=== PATIENT | male | born 1975 | race Two or more races ===

== ENCOUNTER 2020-02-20 04:51 | Emergency (ER) | payer OTHER, MEDICAID ==
[2020-02-20 04:57] VITALS: Ht 180.3 cm
[2020-02-20] MEDS ORDERED: CARVEDILOL ER40 MG PO (06:01)
[2020-02-20] MEDS ORDERED: ADALAT CC60 MG PO (06:02)
[2020-02-20] MEDS ORDERED: CALCIUM ACETAT667 M2 PO (06:02)
[2020-02-20] MEDS ORDERED: RENVELA800 M1 PO (06:04)
[2020-02-20] MEDS ORDERED: COZAAR100 MG PO (06:04)
[2020-02-20 06:05] LABS: BASOPHIL % 0.3 % (0-2); PLATELET COUNT 144 x10^3mcL (130-400)
[2020-02-20] MEDS ORDERED: ATORVASTATIN CA80 M1 PO (06:05)
[2020-02-20] MEDS ORDERED: VITAMIN D50000 I4 PO (06:05)
[2020-02-20 06:06] LABS: RED CELL DISTRIBUTION WIDTH 17.7 % (11.5-14.5)
[2020-02-20] MEDS ORDERED: MEN'S ROGAINE5% PO (06:08)
[2020-02-20] MEDS ORDERED: BUMETANIDE0.5 MG PO (06:08)
[2020-02-20 06:16] LABS: ALBUMIN 4.1 g/dL (3.4-5.0); BILIRUBIN TOTAL 0.6 mg/dL (0.20-1.00); CALCIUM 8.9 mg/dL (8.5-10.1); POTASSIUM SERUM 4.3 mmol/L (3.5-5.1); TOTAL PROTEIN, SERUM 7.6 g/dL (6.4-8.2)
[2020-02-20 07:31] VITALS: BP 136/69
== END 2020-02-20 07:31 | disposition home or self-care (01) ==
LOC: ED 04:51
PROVIDERS: Student in an Organized Health Care Education/Training Program
DX: R07.89 Other chest pain (principal); E11.22 Type 2 diabetes mellitus with diabetic chronic kidney disease; I12.0 Hypertensive chronic kidney disease with stage 5 chronic kidney disease or end stage renal disease; N18.6 End stage renal disease; Z99.2 Dependence on renal dialysis
CPT/HCPCS: Q0092

== ENCOUNTER 2020-03-28 23:22 | Emergency (ER) | payer OTHER, MEDICAID ==
[~2020-03-28] VITALS: Ht 152.4 cm; Wt 152.5 kg
[~2020-03-28 23:22] MED LIST: ADA90 PO; ADALAT CC60 MG PO; ALOGLIPTIN6.25 MG PO; AMLODIPINE BESY10 M2 PO; APR50 PO; ATORVASTATIN CA80 M1 PO; BUMETANIDE0.5 MG PO; BUMETANIDE2 MG PO; CALCIUM ACETAT667 M2 PO; CALCIUM CARBO1250 MG PO; CARVEDILOL ER40 MG PO; CARVEDILOL25 M1; COL0.6 PO; CORE25 PO; COZAAR100 MG PO; D-10001 TAB PO; DELTASONE20 MG PO; ECO81 PO; LIPITOR80 MG PO; LOSARTAN POTAS100 M1 PO; MEN'S ROGAINE5% PO; MITIGARE0.6 MG PO; PRI20 PO; REGLAN10 M1 PO; REN800 PO; RENVELA800 M1 PO; ULTRAM50 MG PO; VITAMIN D350000 UNIT PO; VITAMIN D50000 I4 PO
[2020-03-28 23:30] VITALS: Ht 152.4 cm; Wt 152.5 kg
--- NOTE | 2020-03-29 00:11 | NUR ---
ATTEMPTED PIV X2 BY BEDSIDE RN. WILL REQUEST ASSISTANCE FROM [facility]
[2020-03-29 00:30] LABS: BASOPHIL % 0.2 % (0-2); PLATELET COUNT 130 x10^3mcL (130-400)
[2020-03-29 00:42] LABS: RED CELL DISTRIBUTION WIDTH 17.4 % (11.5-14.5)
[2020-03-29 00:47] LABS: BILIRUBIN TOTAL 0.8 mg/dL (0.20-1.00); CALCIUM 9.3 mg/dL (8.5-10.1); CARBON DIOXIDE 30.6 mmol/L (21-32); TOTAL PROTEIN, SERUM 7.4 g/dL (6.4-8.2)
[2020-03-29 00:54] LABS: CREATININE SERUM 9.1 mg/dL (0.7-1.3)
[2020-03-29 04:13] VITALS: BP 179/84
[2020-03-29 04:42] LABS: CHOLESTEROL/HDL RATIO 2.1
== END 2020-03-29 04:17 | disposition left against medical advice (07) ==
LOC: ED 23:22 → DU 03-29 03:20 → ED 03-29 03:20
PROVIDERS: Internal Medicine; Student in an Organized Health Care Education/Training Program
DX: I13.2 Hypertensive heart and chronic kidney disease with heart failure and with stage 5 chronic kidney disease, or end stage renal disease (principal); E11.22 Type 2 diabetes mellitus with diabetic chronic kidney disease; N18.6 End stage renal disease; E78.00 Pure hypercholesterolemia, unspecified; R09.89 Other specified symptoms and signs involving the circulatory and respiratory systems; Z99.2 Dependence on renal dialysis
CPT/HCPCS: 83880; G0378; Q0092

== ENCOUNTER 2020-04-10 17:51 | Emergency (ER) | payer OTHER, MEDICAID, SELFPAY ==
[2020-04-10 17:54] VITALS: BP 186/98; Ht 180.3 cm
== END 2020-04-10 19:46 | disposition home or self-care (01) ==
LOC: ED 17:51
DX: R06.02 Shortness of breath (principal); E11.22 Type 2 diabetes mellitus with diabetic chronic kidney disease; I12.9 Hypertensive chronic kidney disease with stage 1 through stage 4 chronic kidney disease, or unspecified chronic kidney disease; N18.9 Chronic kidney disease, unspecified; E78.00 Pure hypercholesterolemia, unspecified; Z20.828 Contact with and (suspected) exposure to other viral communicable diseases; Z99.2 Dependence on renal dialysis
CPT/HCPCS: U0003-CS

== ENCOUNTER 2020-05-09 05:42 | Emergency (ER) | payer OTHER, MEDICAID ==
[2020-05-09 05:44] VITALS: BP 151/85; Ht 180.3 cm
== END 2020-05-09 06:39 | disposition home or self-care (01) ==
LOC: ED 05:42
DX: Z13.9 Encounter for screening, unspecified (principal); I10 Essential (primary) hypertension; E11.9 Type 2 diabetes mellitus without complications; E78.00 Pure hypercholesterolemia, unspecified